=== PATIENT | female | born 1955 | race Caucasian/White ===

== ENCOUNTER → 2023-01-19 | Outpatient (CLI) | payer OTHER, MEDICARE, SELFPAY ==
--- NOTE | 2023-01-19 12:52 | ECHOD_ITS ---
Reason For Study: PALPITATIONS Procedure This was a 2D Doppler, Color Flow transthoracic echocardiogram. Exam performed in department. Left Ventricle Normal LV size. Left ventricular systolic function is normal. The estimated ejection fraction is 60 %. Stage 1 diastolic dysfunction. No regional wall motion abnormalities noted. Right Ventricle Normal RV size. Normal systolic function. Atria Normal left atrium. Normal right atrium. Mitral Valve Normal mitral valve. Tricuspid Valve Normal tricuspid valve. Mild tricuspid valve insufficiency. Pulmonary artery systolic pressure is 28 mmHg. Aortic Valve Normal aortic valve. Trisinus/trileaflet aortic valve. Pulmonic Valve Normal pulmonic valve. Great Vessels Normal aortic root. The pulmonary artery is normal size. Normal inferior vena cava. Pericardium/Pleural No pericardial effusion. MMode/2D Measurements & Calculations LVIDd: 4.8 cm IVSd: 0.75 cm Ao root diam: 2.9 cm LVIDs: 2.8 cm LVPWd: 0.71 cm RVDd: 3.0 cm FS: 41.1 % LAV(MOD-bp): 46.7 ml LVAd ap4: 27.2 cm2 SV(MOD-sp4): 46.6 ml LAV(MOD-bp) Indexed: 24.1 ml/m2 LVLd ap4: 7.9 cm LAV(MOD-sp2): 58.2 ml EDV(MOD-sp4): 78.9 ml LAV(MOD-sp4): 37.6 ml EDV(sp4-el): 79.5 ml LVAs ap4: 14.8 cm2 LVLs ap4: 5.8 cm ESV(MOD-sp4): 32.3 ml ESV(sp4-el): 32.0 ml EF(MOD-sp4): 59.0 % EF(sp4-el): 59.7 % SV(sp4-el): 47.5 ml LA A4 area: 15.5 cm2 LA dimension(2D): 3.6 cm RA A4 area: 12.2 cm2 TAPSE: 1.9 cm Doppler Measurements & Calculations MV E max cheng: 75.4 cm/sec Lat Peak E' Cheng: 9.5 cm/sec Med Peak E' Cheng: 7.7 cm/sec MV A max cheng: 102.2 cm/sec E/E' lat: 7.9 E/E' med: 9.8 MV E/A: 0.74 MV V2 max: 112.9 cm/sec MV P1/2t max cheng: 96.0 cm/sec Ao V2 max: 154.7 cm/sec MV max P.1 mmHg MV P1/2t: 69.5 msec Ao max P.6 mmHg MV V2 mean: 49.9 cm/sec Ao V2 mean: 94.3 cm/sec MV mean P.3 mmHg MV dec slope: 404.6 cm/sec2 Ao mean P.2 mmHg MV V2 VTI: 35.1 cm MVA(P1/2t): 3.2 cm2 Ao V2 VTI: 36.2 cm AV (velocity ratio): 0.85 LV V1 max: 124.1 cm/sec PA V2 max: 68.2 cm/sec TR max cheng: 241.7 cm/sec LV V1 max P.2 mmHg TR max P.4 mmHg LV V1 mean P.0 mmHg LV V1 mean: 81.0 cm/sec LV V1 VTI: 30.8 cm ECHO/Echo Complete Interpretation Summary Normal LV size. Left ventricular systolic function is normal. The estimated ejection fraction is 60 %. Stage 1 diastolic dysfunction. Ordering Physician: Beto Donaldson Referring Physician: Beto Donaldson Performed By: Silvia Cortés and Student
== END | disposition home or self-care (01) ==
LOC: CVS 12:50
PROVIDERS: Referring Provider Internal Medicine Cardiovascular Disease; Visit Provider Internal Medicine Cardiovascular Disease
DX: R00.2 Palpitations (principal)
CPT/HCPCS: 93306